=== PATIENT | female | born 1990 | race Caucasian/White ===

== ENCOUNTER 2017-09-01 10:37 | Day surgery (SDC) | payer OTHER ==
[~2017-09-01] VITALS: Ht 167.6 cm; Wt 81.6 kg
[~2017-09-01 10:37] MED LIST: FISH1000 PO; FLUTISP; LIDOCAINE 2% INJ 100 MG/5 ML SDV (FOR ANES.) As Ordered ONE; PRIL20CA9 PO; PROPOFOL 200 MG/20 ML VIAL As Ordered ONE; RANI150C PO; VITA100T98 PO; VITA2000 PO; VITMTA PO
[2017-09-01] MEDS ORDERED: NS 1,000 ML IV ONE (10:45)
--- NOTE | 2017-09-01 12:03 | ROOR ---
Patient Name: Ramiro Sotomayor Procedure Date: 09/01/2017 11:48 AM Date of : 1990 Age: 27 Room: [facility] Gender: Female Note Status: Finalized Procedure: Upper GI endoscopy Indications: Epigastric abdominal pain, Nausea Providers: Audi BOGGS MD Referring MD: JOSE RAFAEL PEREZ MD Requesting Provider: Medicines: Monitored Anesthesia Care Complications: No immediate complications. Procedure: Pre-Anesthesia Assessment: - The heart rate, respiratory rate, oxygen saturations, blood pressure, adequacy of pulmonary ventilation, and response to care were monitored throughout the procedure. The Endoscope was introduced through the mouth, and advanced to the third part of duodenum. The upper GI endoscopy was accomplished without difficulty. The patient tolerated the procedure well. Findings: The examined esophagus was normal. Bilious fluid was found in the entire examined stomach. Minimal inflammation was found in the entire examined stomach. Biopsies were taken with a cold forceps for histology. The exam of the stomach was otherwise normal. The examined duodenum was normal. Biopsies for histology were taken with a cold forceps for evaluation of celiac disease. Impression: - Normal esophagus. - Bilious gastric fluid with minimal gastritis. Biopsied. - Normal examined duodenum. Biopsied. Recommendation: - Continue present medications. - Telephone endoscopist for pathology results in 2 weeks. - Depending on your symptoms and biopsies, we may consider a trial on sucralfate. - call me in 2 weeks, continue dicyclomine as needed for now. Audi Boggs MD Audi BOGGS MD 09/01/2017 12:02:57 PM This report has been signed electronically. Number of Addenda: 0 Note Initiated On: 09/01/2017 11:48 AM Estimated Blood Loss: Estimated blood loss: none.
--- NOTE | 2017-09-01 12:29 | ROOR ---
Patient Name: Ramiro Sotomayor Procedure Date: 09/01/2017 11:49 AM Date of : 1990 Age: 27 Room: [facility] Gender: Female Note Status: Finalized Procedure: Colonoscopy Indications: Generalized abdominal pain, Irritable bowel syndrome with diarrhea, Diarrhea Providers: Audi BOGGS MD Referring MD: JOSE RAFAEL PEREZ MD Requesting Provider: Medicines: Monitored Anesthesia Care Complications: No immediate complications. Procedure: Pre-Anesthesia Assessment: - The heart rate, respiratory rate, oxygen saturations, blood pressure, adequacy of pulmonary ventilation, and response to care were monitored throughout the procedure. The Colonoscope was introduced through the anus and advanced to 15 cm into the ileum. The colonoscopy was performed without difficulty. The patient tolerated the procedure well. The quality of the bowel preparation was good. Findings: The perianal and digital rectal examinations were normal. (Exam: Complete, Prep: Good or Excellent.) A 7 mm polyp was found in the ileocecal valve. The polyp was flat. The polyp was removed with a piecemeal technique using a cold snare. Resection and retrieval were complete. The terminal ileum contained two aphthae. This was biopsied with a cold forceps for histology. The exam was otherwise without abnormality on direct and retroflexion views. Impression: - (Exam: Complete, Prep: Good or Excellent.) - One 7 mm polyp at the ileocecal valve, removed piecemeal using a cold snare. Resected and retrieved. - Two 1-2 mm aphtha in the terminal ileum (dubious significance). Biopsied. - The examination of the terminal ileum and colon was otherwise normal on direct and retroflexion views. - (Irritable Bowel Syndrome/IBS suspected.) Recommendation: - Continue present medications. (dicyclomine as needed) - Await pathology results. - Telephone endoscopist for pathology results in 2 weeks. Audi Boggs MD Audi BOGGS MD 09/01/2017 12:28:43 PM This report has been signed electronically. Number of Addenda: 0 Note Initiated On: 09/01/2017 11:49 AM Estimated Blood Loss: Estimated blood loss: none.
[2017-09-02] MEDS ORDERED: fentaNYL 100 MCG/2 ML INJECTION (J3010) As Ordered ONE (09:44)
[2017-09-03 07:44] VITALS: BP 101/69
== END 2017-09-01 12:29 | disposition home or self-care (01) ==
LOC: M OPP 10:37 → EDUNIT# 14:30
PROVIDERS: ATTEND Internal Medicine Gastroenterology
DX: R10.84 Generalized abdominal pain (principal); K58.0 Irritable bowel syndrome with diarrhea; D12.0 Benign neoplasm of cecum; K63.89 Other specified diseases of intestine; K59.00 Constipation, unspecified; R10.13 Epigastric pain; R11.0 Nausea; K29.70 Gastritis, unspecified, without bleeding; R12 Heartburn; K21.9 Gastro-esophageal reflux disease without esophagitis; Z79.899 Other long term (current) drug therapy

== ENCOUNTER 2018-07-18 19:32 | Inpatient (IN) | payer OTHER ==
[2018-07-18] MEDS: ONDANSETRON 4MG/2ML VIAL (J2405) IV (21:30)
[2018-07-19] MEDS: CALCIUM CARBONATE 500 MG CHEW U/D PO (00:30)
[2018-07-19 01:41] LABS: HEMATOCRIT 36.1 % (36.0-47.0); HEMOGLOBIN 12.6 g/dl (12.0-15.5); MEAN CORPUSCULAR HGB CONC 34.9 g/dl (32.0-36.5); MEAN CORPUSCULAR VOLUME 88.7 fl (80.0-96.0); PLATELET COUNT, AUTOMATED 222 10^3/uL (150-450); RED BLOOD COUNT 4.07 10^6/uL (4.00-5.40); WHITE BLOOD COUNT 12.6 10^3/uL (4.0-10.0)
[2018-07-19] MEDS: PENICILLIN G POTASSIUM IV 5 MU in D5W MINI-BAG PLUS 100 ML IV (01:59)
[2018-07-19] MEDS: FAMOTIDINE 20 MG TAB PO (01:59)
[2018-07-19] MEDS: LACTATED RINGER'S 1000 ML IV (02:00)
[2018-07-19] MEDS ORDERED: FENTANYL 2MCG/ML ROPIVACAINE 0.2% IN 0.9% NACL 200ML IVBAG As Ordered (02:21)
[2018-07-19] MEDS ORDERED: EPIDURAL/PCA KEYS XX (02:48)
[2018-07-19] MEDS ORDERED: ONDANSETRON 4MG/2ML VIAL (J2405) IV (02:48)
[2018-07-19] MEDS ORDERED: ePHEDrine SULFATE 25 MG/5 ML(5MG/ML) SYRINGE IV (02:48)
[2018-07-19] MEDS: FENTANYL/ROPIVACAINE/NACL BAG 200 ML EPIDURAL (02:48)
[2018-07-19] MEDS ORDERED: EPIDURAL COMMENT XX (02:48)
[2018-07-19] MEDS ORDERED: NALOXONE INJ 0.4 MG/1 ML VIAL (J2310) IV (02:48)
[2018-07-19] MEDS ORDERED: diphenhydrAMINE INJ 50MG/ML VIAL (J1200) IV (02:48)
[2018-07-19] MEDS ORDERED: REFRIGERATOR IV KEYS XX (02:48)
[2018-07-19] MEDS ORDERED: ePHEDrine SULFATE 25 MG/5 ML(5MG/ML) SYRINGE As Ordered (03:12)
[2018-07-19] MEDS: LR 1,000 ML IV ×4 (06:14→18:37)
[2018-07-19] MEDS: PENICILLIN G POTASSIUM IV 2.5 MU in APPROPRIATE DILUENT 1 EA IV ×4 (06:14→18:05)
[2018-07-19] MEDS: PROMETHAZINE INJ 25 MG/ML VIAL (J2550) IV (06:14)
[2018-07-19] MEDS ORDERED: OXYTOCIN 30 UNITS IN 0.9% NaCl 500ML IV BAG (J2590) As Ordered (07:38)
[2018-07-19] MEDS: OXYTOCIN DRIP 30 UNITS in APPROPRIATE DILUENT 1 EA IV (12:23)
[2018-07-19 22:11] LABS: CORD GAS ABE A -9.9; CORD GAS HCO3 A 15.9 MEQ/L; CORD GAS O2 SAT A 69.1 %; CORD GAS PCO2 A 35.4 mmHg; CORD GAS PO2 A 31.8 mmHg; CORD GAS SBC A 16.1 MEQ/L
[2018-07-19 22:12] LABS: CORD GAS ABE V -9.1; CORD GAS HCO3 V 16.6 MEQ/L; CORD GAS O2 SAT V 67.5 %; CORD GAS PH V 7.281 UNITS; CORD GAS PO2 V 30.8 mmHg; CORD GAS SBC V 16.7 MEQ/L; CORD GAS TCO2 V 17.7 MEQ/L
[2018-07-19] MEDS ORDERED: RHOGAM 300 MCG (1500 IU) INJ (J2790) IM (22:30)
[2018-07-19] MEDS ORDERED: DIBUCAINE 1% OINTMENT 30GM TOP (22:30)
[2018-07-19] MEDS ORDERED: MEASLES,MUMPS,RUBELLA VACCINE INJ (MMR-II) (90707) SC (22:30)
[2018-07-20] MEDS: LR 1,000 ML IV ×2 (00:26→08:26)
[2018-07-20] MEDS: OXYTOCIN DRIP 30 UNITS in APPROPRIATE DILUENT 1 EA IV (02:06)
[2018-07-20] MEDS: PRENATAL VITAMINS CHEWABLE TABLET PO (08:00)
[2018-07-20] MEDS: IBUPROFEN 800 MG TAB PO ×2 (08:00→19:02)
[2018-07-20] MEDS: METHYLERGONOVINE MALEATE 0.2 MG/ML VIAL (J2210) IM (09:05)
[2018-07-20] MEDS: ACETAMINOPHEN 500 MG TAB PO ×2 (11:05→21:00)
[2018-07-20] MEDS: METHYLERGONOVINE MALEATE 0.2 MG TAB PO ×2 (14:33→20:59)
[2018-07-20] MEDS: DOCUSATE SODIUM 100 MG CAP PO (21:00)
[2018-07-21] MEDS: METHYLERGONOVINE MALEATE 0.2 MG TAB PO (04:41)
[2018-07-21] MEDS: LR 1,000 ML IV ×2 (05:03)
[2018-07-21] MEDS: IBUPROFEN 800 MG TAB PO (06:04)
[2018-07-21] MEDS: PRENATAL VITAMINS CHEWABLE TABLET PO (08:30)
== END 2018-07-21 15:05 | disposition home or self-care (01) | DRG 775 ==
LOC: M LDO 19:32 → M LDI 07-19 00:48 → M OBS 07-20 00:16
PROVIDERS: Obstetrics & Gynecology
PROC: 10E0XZZ Delivery of Products of Conception, External Approach (ICD-10-PCS; principal; 2018-07-19)
PROC: 0KQM0ZZ Repair Perineum Muscle, Open Approach (ICD-10-PCS; 2018-07-19)
PROC: 10907ZC Drainage of Amniotic Fluid, Therapeutic from Products of Conception, Via Natural or Artificial Opening (ICD-10-PCS; 2018-07-19)
DX: O48.0 Post-term pregnancy (principal); Z37.0 Single live birth; Z3A.40 40 weeks gestation of pregnancy; K21.9 Gastro-esophageal reflux disease without esophagitis; Z79.899 Other long term (current) drug therapy; O99.824 Streptococcus B carrier state complicating childbirth; O77.0 Labor and delivery complicated by meconium in amniotic fluid; O70.1 Second degree perineal laceration during delivery; O99.62 Diseases of the digestive system complicating childbirth

== ENCOUNTER 2018-07-23 21:25 | Observation (INO) | payer OTHER ==
[2018-07-23 22:54] LABS: BASO % 0.5 % (0.0-1.0); EOS # 0.2 10^3/uL (0.0-0.50); EOS % 2.2 % (0.0-3.0); HEMATOCRIT 32.2 % (36.0-47.0); HEMOGLOBIN 11.1 g/dl (12.0-15.5); IMMATURE GRANULOCYTE % 0.5 % (0-3.0); LYMPH # 2.1 10^3/uL (1.5-4.5); LYMPH % 26.7 % (24.0-44.0); MEAN CORPUSCULAR HEMOGLOBIN 30.9 pg (27.0-33.0); MEAN CORPUSCULAR HGB CONC 34.5 g/dl (32.0-36.5); MEAN CORPUSCULAR VOLUME 89.7 fl (80.0-96.0); MONO # 0.7 10^3/uL (0.0-0.8); MONO % 8.3 % (0.0-5.0); NEUTROPHILS % 61.8 % (36.0-66.0); PLATELET COUNT, AUTOMATED 260 10^3/uL (150-450); RED BLOOD COUNT 3.59 10^6/uL (4.00-5.40); RED CELL DISTRIBUTION WIDTH 11.9 % (11.5-14.5)
[2018-07-23 22:57] LABS: ABG BASE EXCESS -2.1 (-2.0-2.0); ABG HCO3 20.4 MEQ/L (22.0-26.0); ABG O2 SATURATION 97.5 % (95.0-99.0); ABG PARTIAL PRESSURE CO2 27.8 mmHg (35.0-45.0); ABG PARTIAL PRESSURE O2 101.6 mmHg (75.0-100.0); ABG STANDARD HCO3 22.7 MEQ/L (22.0-26.0); ABG TOTAL CO2 21.2 MEQ/L (22.0-29.0); ABG pH (ARTERIAL) 7.483 UNITS (7.350-7.450)
[2018-07-23 23:05] LABS: INR 0.87; PROTHROMBIN TIME 11.9 SECONDS (12.1-14.4)
[2018-07-23] MEDS ORDERED: ISOVUE-370 76% 100ML VIAL (Q9967) As Ordered ×2 (23:09)
[2018-07-23 23:12] LABS: KETONE, URINE AUTO RFX NEGATIVE (NEGATIVE); NITRITE, URINE AUTO RFX NEGATIVE (NEGATIVE); RBC, URINE AUTO RFX 2 /HPF (0-3); SPECIFIC GRAVITY UR AUTO RFX 1.003 (1.002-1.035); SQUAM EPITHELIAL CELL UR AURFX 1 /HPF (0-6)
[2018-07-23 23:13] LABS: LEUKOCYTE ESTERASE UR AUTO RFX 2+ (NEGATIVE); WBC, URINE AUTO RFX 15 /HPF (0-3)
[2018-07-23 23:32] LABS: ALBUMIN 2.7 GM/DL (3.2-5.2); ALBUMIN/GLOBULIN RATIO 0.77 (1.00-1.93); ALKALINE PHOSPHATASE 95 U/L (45-117); ALT/SGPT 45 U/L (12-78); ANION GAP 9 MEQ/L (8-16); AST/SGOT 40 U/L (7-37); BILIRUBIN,DIRECT < 0.1 MG/DL (0.0-0.2); BILIRUBIN,TOTAL 0.2 MG/DL (0.2-1.0); BLOOD UREA NITROGEN 15 MG/DL (7-18); CALCIUM LEVEL 8.4 MG/DL (8.5-10.1); CARBON DIOXIDE LEVEL 26 MEQ/L (21-32); CHLORIDE LEVEL 106 MEQ/L (98-107); CPK CREATINE PHOSPHOKINASE 140 U/L (26-192); CREATININE FOR GFR 0.94 MG/DL (0.55-1.30); GLOMERULAR FILTRATION RATE > 60.0 (>60); GLUCOSE, FASTING 86 MG/DL (70-100); MAGNESIUM LEVEL 1.5 MG/DL (1.8-2.4); MB/CK RELATIVE INDEX 1.07 (< OR =4); NT-PRO BNP 1186 PG/ML (<125); POTASSIUM SERUM 3.7 MEQ/L (3.5-5.1); SODIUM LEVEL 141 MEQ/L (136-145); TOTAL PROTEIN 6.2 GM/DL (6.4-8.2); TROPONIN I < 0.02 NG/ML (< 0.10); URIC ACID 6.7 MG/DL (2.6-6.0)
[2018-07-23] MEDS: ACETAMINOPHEN TAB 650MG DOSE (2X325MG) PO ×2 (23:45)
[2018-07-24] MEDS: FUROSEMIDE 40 MG/4 ML VIAL (J1940) IV ×2 (01:30)
[2018-07-24] MEDS: ACETAMINOPHEN TAB 650MG DOSE (2X325MG) PO ×8 (05:10→18:17)
[2018-07-24 05:45] LABS: ANION GAP 11 MEQ/L (8-16); BLOOD UREA NITROGEN 12 MG/DL (7-18); CALCIUM LEVEL 9.5 MG/DL (8.5-10.1); CARBON DIOXIDE LEVEL 29 MEQ/L (21-32); CHLORIDE LEVEL 103 MEQ/L (98-107); CREATININE FOR GFR 0.95 MG/DL (0.55-1.30); GLOMERULAR FILTRATION RATE > 60.0 (>60); GLUCOSE, FASTING 85 MG/DL (70-100); POTASSIUM SERUM 3.5 MEQ/L (3.5-5.1); SODIUM LEVEL 143 MEQ/L (136-145); TROPONIN I < 0.02 NG/ML (< 0.10)
[2018-07-24 08:08] LABS: FREE T4 1.27 NG/DL (0.76-1.46)
[2018-07-24] MEDS: LORATADINE 10 MG TAB PO ×2 (08:43)
[2018-07-24] MEDS: FLUTICASONE PROP 0.05% NASAL SPRAY 16 GM (FLONASE) ×4 (08:43→21:03)
[2018-07-24] MEDS: MULTIVITAMINS/MINERALS THERAP 1 TAB PO ×2 (08:43)
[2018-07-24] MEDS: ENOXAPARIN 40 MG/0.4 ML SYRINGE (J1650) SC ×2 (08:44)
[2018-07-24] MEDS: PANTOPRAZOLE 40MG TAB (PROTONIX) PO ×2 (17:26)
[2018-07-24] MEDS ORDERED: MAG SULF 1GM/100ML (MAG RUN) 1 GM in APPROPRIATE DILUENT 1 EA IV (18:45)
[2018-07-24] MEDS: FUROSEMIDE 20 MG/2 ML VIAL (J1940) IV ×2 (21:03)
[2018-07-24] MEDS: DOCUSATE SODIUM 100 MG CAP PO ×2 (21:03)
[2018-07-24] MEDS: MAG SULF 1GM/100ML (MAG RUN) 1 GM in APPROPRIATE DILUENT 1 EA IV ×2 (21:03→22:21)
[2018-07-24] MEDS: MAGNESIUM OXIDE 400 MG TAB (MAG-OX) PO ×2 (21:03)
[2018-07-24 21:38] LABS: ANION GAP 8 MEQ/L (8-16); BLOOD UREA NITROGEN 17 MG/DL (7-18); CALCIUM LEVEL 8.8 MG/DL (8.5-10.1); CARBON DIOXIDE LEVEL 28 MEQ/L (21-32); CHLORIDE LEVEL 103 MEQ/L (98-107); CREATININE FOR GFR 0.97 MG/DL (0.55-1.30); GLOMERULAR FILTRATION RATE > 60.0 (>60); GLUCOSE, FASTING 86 MG/DL (70-100); POTASSIUM SERUM 3.9 MEQ/L (3.5-5.1); SODIUM LEVEL 139 MEQ/L (136-145)
[2018-07-24] MEDS: FIORICET TAB PO ×2 (22:20)
[2018-07-25 04:38] LABS: BASO # 0.1 10^3/uL (0.0-0.2); BASO % 0.7 % (0.0-1.0); EOS # 0.3 10^3/uL (0.0-0.50); EOS % 3.8 % (0.0-3.0); HEMATOCRIT 37.7 % (36.0-47.0); IMMATURE GRANULOCYTE % 0.3 % (0-3.0); LYMPH # 2.7 10^3/uL (1.5-4.5); LYMPH % 31.2 % (24.0-44.0); MEAN CORPUSCULAR HGB CONC 35.8 g/dl (32.0-36.5); MEAN CORPUSCULAR VOLUME 86.5 fl (80.0-96.0); MONO # 0.8 10^3/uL (0.0-0.8); MONO % 9.2 % (0.0-5.0); NEUTROPHILS # 4.8 10^3/uL (1.8-7.7); NEUTROPHILS % 54.8 % (36.0-66.0); PLATELET COUNT, AUTOMATED 352 10^3/uL (150-450); RED BLOOD COUNT 4.36 10^6/uL (4.00-5.40); RED CELL DISTRIBUTION WIDTH 11.9 % (11.5-14.5); WHITE BLOOD COUNT 8.8 10^3/uL (4.0-10.0)
[2018-07-25 04:43] LABS: HEMOGLOBIN 13.5 g/dl (12.0-15.5)
[2018-07-25 05:00] LABS: ALBUMIN/GLOBULIN RATIO 0.73 (1.00-1.93); ALKALINE PHOSPHATASE 93 U/L (45-117); ALT/SGPT 36 U/L (12-78); ANION GAP 9 MEQ/L (8-16); AST/SGOT 24 U/L (7-37); BILIRUBIN,TOTAL 0.2 MG/DL (0.2-1.0); BLOOD UREA NITROGEN 19 MG/DL (7-18); C REACTIVE PROTEIN QUANTITATIV 2.02 MG/DL (0.00-0.30); CARBON DIOXIDE LEVEL 27 MEQ/L (21-32); CHLORIDE LEVEL 104 MEQ/L (98-107); GLOMERULAR FILTRATION RATE > 60.0 (>60); GLUCOSE, FASTING 87 MG/DL (70-100); POTASSIUM SERUM 3.7 MEQ/L (3.5-5.1); SODIUM LEVEL 140 MEQ/L (136-145); TOTAL PROTEIN 7.1 GM/DL (6.4-8.2)
[2018-07-25 05:00] LABS: NT-PRO BNP 224 PG/ML (<125)
[2018-07-25] MEDS: ACETAMINOPHEN TAB 650MG DOSE (2X325MG) PO ×4 (05:00→12:16)
[2018-07-25 05:31] LABS: ERYTHROCYTE SEDIMENTATION RATE 45 mm/hr (0-20)
[2018-07-25] MEDS: FLUTICASONE PROP 0.05% NASAL SPRAY 16 GM (FLONASE) ×2 (09:00)
[2018-07-25] MEDS: PANTOPRAZOLE 40MG TAB (PROTONIX) PO ×2 (10:08)
[2018-07-25] MEDS: MULTIVITAMINS/MINERALS THERAP 1 TAB PO ×2 (10:08)
[2018-07-25] MEDS: ENOXAPARIN 40 MG/0.4 ML SYRINGE (J1650) SC ×2 (10:08)
[2018-07-25] MEDS: MAGNESIUM OXIDE 400 MG TAB (MAG-OX) PO ×2 (10:08)
[2018-07-25] MEDS: LORATADINE 10 MG TAB PO ×2 (10:08)
[2018-07-28 00:21] LABS: Lyme Disease IgG/IgM Antibodie <0.91 ISR (0.00-0.90); Lyme Disease IgM Ab Quantitati <0.80 index (0.00-0.79)
== END 2018-07-25 13:40 | disposition home or self-care (01) ==
LOC: M PCU 07-25 07:38 → M ED INP 07-24 01:56 → M ICU 07-25 07:38 → M ED INP 07-24 04:21 → M ED 21:25 → M ED INP 21:26 → M ICU 07-24 04:21 → M PCU 07-25 07:38
DX: O99.43 Diseases of the circulatory system complicating the puerperium (principal); O99.285 Endocrine, nutritional and metabolic diseases complicating the puerperium; O10.93 Unspecified pre-existing hypertension complicating the puerperium; O99.63 Diseases of the digestive system complicating the puerperium; R00.1 Bradycardia, unspecified; K58.8 Other irritable bowel syndrome
CPT/HCPCS: J3475

== ENCOUNTER 2018-12-03 12:45 | Emergency (ER) | payer OTHER ==
[~2018-12-03] VITALS: Ht 172.7 cm; Wt 81.8 kg
[~2018-12-03 12:45] MED LIST changes: +ACET1TAB55 PO; +CLAR10CA3 PO; +COLA100C5 PO; +IBUP-1114 PO; -LIDOCAINE 2% INJ 100 MG/5 ML SDV (FOR ANES.) As Ordered ONE; +MAPA500T2 PO; -PROPOFOL 200 MG/20 ML VIAL As Ordered ONE; +RANI150T PO; +TUMS500C PO
[2018-12-03] MEDS ORDERED: [UNRECOGNIZED DRUG - CODE] TOP (12:59)
[2018-12-03 13:22] LABS: BASO # 0.1 10^3/uL (0.0-0.2); BASO % 0.9 % (0.0-1.0); EOS # 0.3 10^3/uL (0.0-0.50); EOS % 4.5 % (0.0-3.0); HEMATOCRIT 39.2 % (36.0-47.0); HEMOGLOBIN 13.2 g/dl (12.0-15.5); LYMPH # 2.4 10^3/uL (1.5-4.5); MEAN CORPUSCULAR HEMOGLOBIN 30.2 pg (27.0-33.0); MEAN CORPUSCULAR HGB CONC 33.7 g/dl (32.0-36.5); MEAN CORPUSCULAR VOLUME 89.7 fl (80.0-96.0); MONO # 0.5 10^3/uL (0.0-0.8); MONO % 7.8 % (0.0-5.0); NEUTROPHILS # 3.2 10^3/uL (1.8-7.7); NEUTROPHILS % 49.6 % (36.0-66.0); PLATELET COUNT, AUTOMATED 264 10^3/uL (150-450); RED BLOOD COUNT 4.37 10^6/uL (4.00-5.40); WHITE BLOOD COUNT 6.4 10^3/uL (4.0-10.0)
--- NOTE | 2018-12-03 13:50 | REP ---
Portable chest, 01:24 p.m., single AP view, patient sitting: There are no comparisons. The lung tai are clear. The cardiac size is normal. The xena, mediastinum, and skeletal structures are unremarkable. Impression: Negative portable chest. Electronically Signed by Jarocho Stanton MD 12/03/2018 01:42 P
[2018-12-03 14:07] LABS: ALBUMIN 3.8 GM/DL (3.2-5.2); ALT/SGPT 25 U/L (12-78); BILIRUBIN,DIRECT 0.2 MG/DL (0.0-0.2); BILIRUBIN,TOTAL 0.6 MG/DL (0.2-1.0); BLOOD UREA NITROGEN 9 MG/DL (7-18); CALCIUM LEVEL 8.7 MG/DL (8.5-10.1); CARBON DIOXIDE LEVEL 27 MEQ/L (21-32); CHLORIDE LEVEL 106 MEQ/L (98-107); CPK CREATINE PHOSPHOKINASE 548 U/L (26-192); CREATININE FOR GFR 0.82 MG/DL (0.55-1.30); FREE T4 1.27 NG/DL (0.76-1.46); GLOMERULAR FILTRATION RATE > 60.0 (>60); GLUCOSE, FASTING 84 MG/DL (70-100); LIPASE 107 U/L (73-393); MB/CK RELATIVE INDEX 0.38 (< OR =4); SODIUM LEVEL 140 MEQ/L (136-145); TOTAL PROTEIN 6.9 GM/DL (6.4-8.2); TROPONIN I < 0.02 NG/ML (< 0.10)
[2018-12-03 15:49] VITALS: BP 119/64
--- NOTE | 2018-12-04 17:33 | ECGEPIP ---
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
== END 2018-12-03 16:03 | disposition home or self-care (01) ==
LOC: EDBD 12:45 → M ED 12:45
DX: R07.9 Chest pain, unspecified (principal); F41.9 Anxiety disorder, unspecified; K21.9 Gastro-esophageal reflux disease without esophagitis; Z79.899 Other long term (current) drug therapy

== ENCOUNTER 2019-02-16 12:27 | Day surgery (SDC) | payer OTHER ==
[~2019-02-16] VITALS: Ht 167.6 cm; Wt 86.2 kg
[2019-02-16] MEDS: NS 1,000 ML IV ONE (06:15)
[~2019-02-16 12:27] MED LIST changes: +CELE100C PO; +CVS1CAP2 PO; +D3 A1000 PO; +HYDR-3363 PO; +LEXA1TAB PO; +LINZ290C PO; +MELA3TAB49 PO; +PRAZ1CAP PO; +[UNRECOGNIZED DRUG - CODE] TOP; +ashwagandha PO
[2019-02-16] MEDS ORDERED: PROPOFOL 200 MG/20 ML VIAL As Ordered ONE (14:29)
[2019-02-16] MEDS ORDERED: fentaNYL 100 MCG/2 ML INJECTION (J3010) As Ordered ONE (14:29)
[2019-02-16] MEDS ORDERED: LIDOCAINE 2% INJ 100 MG/5 ML SDV (FOR ANES.) As Ordered ONE (14:29)
--- NOTE | 2019-02-16 15:18 | ROOR ---
Patient Name: Ramiro Sotomayor Procedure Date: 02/16/2019 3:05 PM Date of : 1990 Age: 28 Room: [facility] Gender: Female Note Status: Finalized Procedure: Upper GI endoscopy Indications: Heartburn Providers: Audi BOGGS MD Referring MD: KAREN JONES MD Requesting Provider: Medicines: Monitored Anesthesia Care Complications: No immediate complications. Procedure: Pre-Anesthesia Assessment: - The heart rate, respiratory rate, oxygen saturations, blood pressure, adequacy of pulmonary ventilation, and response to care were monitored throughout the procedure. The Endoscope was introduced through the mouth, and advanced to the second part of duodenum. The upper GI endoscopy was accomplished without difficulty. The patient tolerated the procedure well. Findings: Mildly severe esophagitis was found at the gastroesophageal junction. Biopsies were taken with a cold forceps for histology. The exam of the esophagus was otherwise normal. The entire examined stomach was normal. The examined duodenum was normal. Impression: - Mild reflux esophagitis. Biopsied. - Normal stomach. - Normal examined duodenum. Recommendation: - Use Prilosec (omeprazole) 20 mg PO daily. - Observe patient's clinical course. - Follow an antireflux regimen. Adui Boggs MD Audi BOGGS MD 02/16/2019 3:17:18 PM Electronically signed by Audi BOGGS MD Number of Addenda: 0 Note Initiated On: 02/16/2019 3:05 PM Estimated Blood Loss: Estimated blood loss: none.
--- NOTE | 2019-02-16 15:32 | ROOR ---
Patient Name: Ramiro Sotomayor Procedure Date: 02/16/2019 3:06 PM Date of : 1990 Age: 28 Room: [facility] Gender: Female Note Status: Finalized Procedure: Colonoscopy Indications: High risk colon cancer surveillance: Personal history of colonic polyps, Incidental - Irritable bowel syndrome with constipation Providers: Audi BOGGS MD Referring MD: KAREN JONES MD Requesting Provider: Medicines: Monitored Anesthesia Care Complications: No immediate complications. Procedure: Pre-Anesthesia Assessment: - The heart rate, respiratory rate, oxygen saturations, blood pressure, adequacy of pulmonary ventilation, and response to care were monitored throughout the procedure. The Colonoscope was introduced through the anus and advanced to 10 cm into the ileum. The colonoscopy was performed without difficulty. The patient tolerated the procedure well. The quality of the bowel preparation was adequate. Findings: The perianal and digital rectal examinations were normal. (EXAM: Complete, PREP: Fair/Adequate) The terminal ileum appeared normal. The entire examined colon appeared normal on direct and retroflexion views. Impression: - (EXAM: Complete, PREP: Fair/Adequate) - The examined portion of the ileum was normal. - The entire examined colon is normal on direct and retroflexion views. - No specimens collected. Recommendation: - Repeat colonoscopy in 5 years for surveillance. Audi Boggs MD Audi BOGGS MD 02/16/2019 3:32:03 PM Electronically signed by Audi BOGGS MD Number of Addenda: 0 Note Initiated On: 02/16/2019 3:06 PM Estimated Blood Loss: Estimated blood loss: none.
[2019-02-16 15:50] VITALS: BP 122/69
== END 2019-02-16 16:13 | disposition home or self-care (01) ==
LOC: M OPP 12:27
PROVIDERS: ATTEND Internal Medicine Gastroenterology
DX: K58.1 Irritable bowel syndrome with constipation (principal); R12 Heartburn; K21.0 Gastro-esophageal reflux disease with esophagitis; Z86.010 Personal history of colon polyps
CPT/HCPCS: 43239; 45378; 88305; J3010